=== PATIENT | male | born 1975 | race American Indian/Alaskan Native ===

== ENCOUNTER 2018-09-01 13:23 | Emergency (ER) | payer MEDICARE ==
[2018-09-01 14:03] VITALS: BP 127/78
--- NOTE | 2018-09-01 14:13 | Emergency Department Report ---
ED Recheck HPI - General Chief Complaint: Medical Clearance Stated Complaint: MED REFILL/STRIPS Time Seen by Provider: 09/01/18 14:05 Source: patient Mode of arrival: Ambulatory Limitations: No Limitations - History of Present Illness Initial Comments: This is a 42-year-old male presents to the ER for a glucose fingerstick test strips refilled. Patient otherwise denies any complains. Denies any fever chills nausea vomiting chest pain shortness of breath. Patient states allergies to phenobarbital with past medical history diabetes, hypertension and schizophrenia. Symptoms Since Prior Visit: no new symptoms Associated Symptoms: none. denies: fever, chills, chest pain, shortness of breath, rash, malaise, nasuea, abdominal pain - Related Data Previous Rx's Medication Instructions Recorded Last Taken Type Chlorhexidine Gluconate [Hibiclens] 10 ml TP BID #240 liquid 07/16/18 Unknown Rx traMADol [Ultram] 50 mg PO Q6HR PRN #20 tablet 07/16/18 Unknown Rx traMADol [Ultram] 50 mg PO Q6HR PRN #12 tablet 07/21/18 Unknown Rx Blood Sugar Diagnostic [Test 1 each [facility] DAILY #1 box 09/01/18 Unknown Rx Strips] Allergies Allergy/AdvReac Type Severity Reaction Status Date / Time phenobarbital AdvReac Seizure Verified 07/25/18 09:11 ED Review of Systems ROS: Stated complaint: MED REFILL/STRIPS Other details as noted in HPI Constitutional: denies: chills, fever Eyes: denies: eye pain, eye discharge, vision change ENT: denies: ear pain, throat pain Respiratory: denies: cough, shortness of breath, wheezing Cardiovascular: denies: chest pain, palpitations Endocrine: no symptoms reported Gastrointestinal: denies: abdominal pain, nausea, diarrhea Genitourinary: denies: urgency, dysuria Musculoskeletal: denies: back pain, joint swelling, arthralgia Skin: denies: rash, lesions Neurological: denies: headache, weakness, paresthesias Psychiatric: denies: anxiety, depression Hematological/Lymphatic: denies: easy bleeding, easy bruising ED Past Medical Hx - Past Medical History Hx Hypertension: Yes Hx Diabetes: Yes Hx Seizures: Yes Hx Psychiatric Treatment: Yes (schizpenoria) - Surgical History Past Surgical History?: Yes Additional Surgical History: hemrrhoid - Social History Smoking Status: Current Every Day Smoker Substance Use Type: None - Medications Home Medications: Home Medications Medication Instructions Recorded Confirmed Last Taken Type Chlorhexidine Gluconate [Hibiclens] 10 ml TP BID #240 liquid 07/16/18 Unknown Rx traMADol [Ultram] 50 mg PO Q6HR PRN #20 tablet 07/16/18 Unknown Rx traMADol [Ultram] 50 mg PO Q6HR PRN #12 tablet 07/21/18 Unknown Rx Blood Sugar Diagnostic [Test 1 each DAILY #1 box 09/01/18 Unknown Rx Strips] ED Physical Exam - General Limitations: No Limitations General appearance: alert, in no apparent distress - Head Head exam: Present: atraumatic, normocephalic - Extremities Exam Extremities exam: Present: normal inspection, full ROM - Back Exam Back exam: Present: normal inspection, full ROM - Neurological Exam Neurological exam: Present: alert, oriented X3 - Psychiatric Psychiatric exam: Present: normal affect, normal mood. Absent: homicidal ideation, suicidal ideation - Skin Skin exam: Present: warm, dry, intact, normal color. Absent: rash ED Course Vital Signs 09/01/18 14:00 Temperature 97.6 F Pulse Rate 78 Respiratory 16 Rate Blood Pressure 127/78 O2 Sat by Pulse 97 Oximetry - Reevaluation(s) Reevaluation #1: 09/01/18 14:13 Patient is speaking in full sentences with no signs of distress noted. Critical care attestation.: If time is entered above; I have spent that time in minutes in the direct care of this critically ill patient, excluding procedure time. ED Disposition Clinical Impression: Medication refill Disposition: [id number] TO HOME OR SELFCARE Is pt being admited?: No Does the pt Need Aspirin: No Condition: Stable Additional Instructions: Follow-up with a primary care doctor in 3-5 days or if symptoms worsen and continue return to emergency room as soon as possible. Prescriptions: Blood Sugar Diagnostic [Test Strips] 1 each DAILY #1 box Referrals: PRIMARY CARE, [Referring] - 3-5 Days BRUNA GONSALEZ MD [Staff Physician] - 3-5 Days [facility] [Outside] - 3-5 Days [facility] [Outside] - 3-5 Days
== END 2018-09-01 14:30 | disposition home or self-care (01) ==
LOC: ED 13:23
DX: E11.9 Type 2 diabetes mellitus without complications (principal); I10 Essential (primary) hypertension; F20.9 Schizophrenia, unspecified; F17.200 Nicotine dependence, unspecified, uncomplicated; Z76.0 Encounter for issue of repeat prescription; Z88.8 Allergy status to other drugs, medicaments and biological substances
CPT/HCPCS: 82962; 99282